=== PATIENT | male | born 1950 | race Caucasian/White ===

== ENCOUNTER 2025-02-13 09:57 | Observation (INO) ==
--- NOTE | 2024-12-12 07:40 | Anesthesiology Consultation ---
Date of Service December 12, 2024 Assessment & Plan (1) Encounter for pre-operative examination: Chart Review Chart Review: Acceptable Risk for Surgery and Patient NOT seen in Pre Admission Testing Should f/u with PCP visit from 12/12/24 regarding his chronic sinus congestion. Consults Requested none History Surgery Operation Date: 12/15/24 10:40 Proposed Procedures p Transurethral Resection of Prostate (TURP) - Joseph Traylor MD Operation Date: 12/26/24 07:30 Proposed Procedures p TURP (Transurethral Resection Prostate) - Joseph Traylor MD Height/Weight Height: 6 ft 3 in Weight: 94.347 kg Allergies Allergy/AdvReac Type Severity Reaction Status Date / Time No Known Allergies Allergy Verified 12/11/24 08:19 Medications Home Medications Medication Instructions Recorded Confirmed Last Taken tamsulosin 0.4 mg capsule (Flomax) 0.4 mg PO QPM #90 caps 02/21/24 12/11/24 Unknown Lactobacillus acidophilus and 1 cap PO QAM 12/11/24 12/11/24 Unknown rhamnosus 15 billion cell capsule (Probiotic) amlodipine 5 mg tablet 5 mg PO QPM 12/11/24 12/11/24 Unknown aspirin 81 mg tablet 81 mg PO QAM 12/11/24 12/11/24 Unknown cholecalciferol (vitamin D3) 125 125 mcg PO QAM 12/11/24 12/11/24 Unknown mcg (5,000 unit) tablet (Vitamin D3) fluticasone propionate 50 1 spray intranasal BID sinus 12/11/24 12/11/24 Unknown mcg/actuation nasal congestion spray,suspension glucosamine sulf dipot 1 cap PO QAM 12/11/24 12/11/24 Unknown chlr,msm,chond 550 mg-C 30 mg-shahla 1 mg capsule (Glucosamine Chondroitin) lisinopril 2.5 mg tablet 2.5 mg PO QPM 12/11/24 12/11/24 Unknown magnesium oxide 500 mg PO QAM 12/11/24 12/11/24 Unknown metoprolol succinate 25 mg 25 mg PO QPM 12/11/24 12/11/24 Unknown tablet,extended release 24 hr multivitamin 1 tab PO QAM 12/11/24 12/11/24 Unknown omega-3 acid ethyl esters 1 gram 4 cap PO QAM 12/11/24 12/11/24 Unknown capsule (Lovaza) rosuvastatin 5 mg tablet (Crestor) 5 mg PO Q2D 12/11/24 12/11/24 Unknown Past Medical History Medical History (Updated 12/12/24 @ 07:40 by Zay Moore MD) Encounter for pre-operative examination Chronic back pain mild - follows with a chiropractor Osteoarthritis Chronic prostatitis Sinus congestion + occasional cough - ongoing since mid-October, treated with abx on November 08, 2024 -- has not improved, but comes and goes, has a f/u with PCP 12/12/24. Hx of Lyme disease last had Summer 2023 and treated with abx. ~ - hospitalized at [facility] for ~3 days IV abx (initially believed to have been spinal menningitis). BPH (benign prostatic hyperplasia) History of COVID-19 ~Summer 2023 -> severe flu symptoms (high fever/chills, fatigue and muscle aches) - no hospitalization - resolved. Sleep apnea mild - cpap at night Hypertension Hyperlipidemia History of atrial fibrillation remote history, follows with Dr. Shields ([facility]) annually Past Family History Family History Mother Arthritis Hypertension History of anesthesia reaction hard to wake up, hallucinations Father Depression Brother Prostate cancer Sister Breast cancer Past Surgical History Surgical History History of ankle surgery Tenex procedure (with anesthesia) [facility] (Dr. Doe) H/O thumb surgery Left Hand - Dr. Gibson ([facility] Hx of prostate biopsy History of tonsillectomy History of cholecystectomy History of colonoscopy H/O rotator cuff surgery right Social History Smoking Status: Never smoker Do You Dip or Chew Tobacco: No Hx Alcohol Use: No Hx Substance Use: No substance use type: does not use Testing Laboratory Results Laboratory Tests 12/04/24 00:00 WBC 6.88 Hgb 14.1 Hct 40.6 L Plt Count 180 Sodium 140 Potassium 4.1 Chloride 108 H Carbon Dioxide 27.2 BUN 20.3 H Creatinine 0.94 Glucose 92 Electrocardiogram Date: 12/04/24 sinus anne with occasional PVC's. HR 58
--- NOTE | 2025-02-08 10:47 | Anesthesiology Consultation ---
Date of Service February 08, 2025 Assessment & Plan (1) Encounter for pre-operative examination: - acceptable to proceed from anesthesia standpoint, COVID test is not needed. - ENT 01/19/25 [place]: "...Sinusitis, maxillary, chronic. Nasal congestion: amoxicillin-pot clavulanate 875-125 mg. 1 tab PO BID 42 tabs 0RF 21 days. prednisone 3 tabs by mouth qd x 4 days, then 2 tabs by mouth qd x 4 days, then 1 tab by mouth qd x 4 days 10 mg PO DAILY 24 tabs 0RF...likely persistent chronic sinusitis that we will treat with maximal therapy..." - ER 01/06/25: "...pain and redness to the posterior right knee...thrombosed superficial veins...can treat symptomatically..." - Per contracting specialist on 02/02/25: No COVID positive test result in the past 30 days. Chart Review Chart Review: Acceptable Risk for Surgery and Patient NOT seen in Pre Admission Testing History Surgery Operation Date: 12/15/24 14:00 Proposed Procedures p Transurethral Resection of Prostate (TURP) - Joseph Traylor MD Operation Date: 12/26/24 07:30 Proposed Procedures p TURP (Transurethral Resection Prostate) - Joseph Traylor MD Operation Date: 01/02/25 13:05 Proposed Procedures p TURP (Transurethral Resection of Prostate) - Joseph Traylor MD Operation Date: 02/13/25 11:20 Proposed Procedures p TURP (Transurethral Resection Prostate) - Joseph Traylor MD Height/Weight Height: 6 ft 3 in Weight: 94.347 kg Allergies Allergy/AdvReac Type Severity Reaction Status Date / Time No Known Allergies Allergy Verified 02/02/25 09:41 Medications Home Medications Medication Instructions Recorded Confirmed Last Taken tamsulosin 0.4 mg capsule (Flomax) 0.4 mg PO QPM #90 caps 02/21/24 02/02/25 Unknown Lactobacillus acidophilus and 1 cap PO QAM 12/11/24 02/02/25 Unknown rhamnosus 15 billion cell capsule (Probiotic) amlodipine 5 mg tablet 5 mg PO QPM 12/11/24 02/02/25 Unknown aspirin 81 mg tablet 81 mg PO QAM 12/11/24 02/02/25 Unknown cholecalciferol (vitamin D3) 125 125 mcg PO QAM 12/11/24 02/02/25 Unknown mcg (5,000 unit) tablet (Vitamin D3) glucosamine sulf dipot 1 cap PO QAM 12/11/24 02/02/25 Unknown chlr,msm,chond 550 mg-C 30 mg-shahla 1 mg capsule (Glucosamine Chondroitin) lisinopril 2.5 mg tablet 2.5 mg PO QPM 12/11/24 02/02/25 Unknown magnesium oxide 500 mg PO QAM 12/11/24 02/02/25 Unknown metoprolol succinate 25 mg 25 mg PO QPM 12/11/24 02/02/25 Unknown tablet,extended release 24 hr multivitamin 1 tab PO QAM 12/11/24 02/02/25 Unknown omega-3 acid ethyl esters 1 gram 4 cap PO QAM 12/11/24 02/02/25 Unknown capsule (Lovaza) rosuvastatin 5 mg tablet (Crestor) 5 mg PO Q2D 12/11/24 02/02/25 Unknown amoxicillin 875 mg-potassium 1 tab PO BID chronic sinusitis 02/02/25 02/02/25 Unknown clavulanate 125 mg tablet Past Medical History Medical History (Updated 02/08/25 @ 10:37 by Maryanne Altamirano PA-C) BPH (benign prostatic hyperplasia) Chronic back pain mild - follows with a chiropractor Chronic prostatitis History of atrial fibrillation remote history, follows with Dr. Shields ([facility]) annually History of COVID-19 ~Summer 2023 -> severe flu symptoms (high fever/chills, fatigue and muscle aches) - no hospitalization - resolved. Hx of Lyme disease last had Summer 2023 and treated with abx. ~ - hospitalized at [facility] for ~3 days IV abx (initially believed to have been spinal meningitis). Hyperlipidemia Hypertension Osteoarthritis Sinus congestion + occasional cough - ongoing since mid-October, treated with abx on November 08, 2024 -- has not improved, but comes and goes, has a f/u with PCP 12/12/24. Sleep apnea mild - cpap at night Past Family History Family History Mother Arthritis Hypertension History of anesthesia reaction hard to wake up, hallucinations Father Depression Brother Prostate cancer Sister Breast cancer Past Surgical History Surgical History H/O rotator cuff surgery right H/O thumb surgery Left Hand - Dr. Gibson ([facility] [place]) History of ankle surgery Tenex procedure (with anesthesia) [facility] (Dr. Doe) History of cholecystectomy History of colonoscopy History of tonsillectomy Hx of prostate biopsy benign Social History Smoking Status: Never smoker Do You Dip or Chew Tobacco: No Hx Alcohol Use: No Hx Substance Use: No substance use type: does not use Testing Laboratory Results 02/05/25 WBC: 6.1 H/H: 14/41 PLATELETS: 170,000 SODIUM: 139 POTASSIUM: 4.3 CHLORIDE: 109 CO2: 26 BUN: 16 CREATININE: 0.8 GLUCOSE: 104 Urine culture: no growth Electrocardiogram Date: 12/04/24 Sinus bradycardia with occasional PVC's, rate 58 bpm Possible RV conduction delay Chest X-Ray Date: 12/04/24 No evidence of acute cardiopulmonary disease Stress Test Date: 09/16/20 MPHR 90% Normal exercise stress echo No evidence for stress-induced ischemia Normal LV EF at rest and with stress No wall motion abnormalities Other Testing RLE venous duplex 01/06/25 Thrombosed superficial varicosities over the right lateral calf. No evidence of DVT in the right lower extremity
[~2025-02-13 09:57] MED LIST: LACTATED RINGER'S 1,000 ML IV SCH
[2025-02-13] MEDS: LR 15ML/HR IV SCH (10:51)
--- NOTE | 2025-02-13 11:26 | History & Physical Bridge Note ---
Date of Service February 13, 2025 History & Physical Bridge Note I have examined the patient, reviewed the History & Physical and in the interval since the performance of the History & Physical I have noted the following changes of clinical significance: no changes noted
[2025-02-13] MEDS ORDERED: ONDANSETRON INJ 2 MG/ML 2 ML VIAL ONE (11:50)
[2025-02-13] MEDS ORDERED: ATROPINE SULFATE 0.1 MG/ML 10ML SYR IV PRN (11:50)
[2025-02-13] MEDS ORDERED: PROPOFOL IV EMULSION 10 MG/ML 20 ML VIAL IV ONE (11:50)
[2025-02-13] MEDS ORDERED: MIDAZOLAM HCL 1 MG/ML 2ML VIAL ONE (11:50)
[2025-02-13] MEDS ORDERED: DEXAMETHASONE SOD INJ 4 MG/ML VIAL ONE (11:50)
[2025-02-13] MEDS ORDERED: LIDOCAINE 2% 2 ML VIAL/AMP(20MG/ML) INFIL ONE (11:50)
[2025-02-13] MEDS: cefTRIAXone SODIUM 2,000 MG MINI-B 50 ML IV SCH (12:06)
--- NOTE | 2025-02-13 13:52 | Operative Report ---
PG Post Operative Report Pre & Post Diagnosis Operation Date: 02/13/25 11:20 Pre-Op Diagnosis: Elevated Prostate Specific Antigen, Benign Prostatic Hyperplasia with Obstruction/ Lower Urinary Tract Symptoms Post-Op Diagnosis: Elevated Prostate Specific Antigen, Benign Prostatic Hyperplasia with Obstruction/ Lower Urinary Tract Symptoms I identified the patient and participated in the time-out.: Yes Procedure Operation Date: 02/13/25 11:20 Actual Procedures p Transurethral Resection Prostate(Not Applicable) - Joseph Traylor MD Surgeon Joseph Traylor MD Skip Pitman none Estimated Blood Loss 5 Findings Consistent with Post-Op Diagnosis Specimens Prostate chips Description of Procedure The patient was identified in the preoperative holding area, appropriate informed consents were reviewed and completed and the patient was transferred to the operative suite. Upon arrival, appropriate antibiotics and anesthesia were administered and the patient was placed in dorsal lithotomy position and prepped and draped in sterile fashion. Beginning is a passive 26 [place] resectoscope with 30 lens and visual obturator. Inspection revealed a healthy-appearing urethra and had a very large prostate with lateral lobe obstruction and a high bladder neck. It appears to have circumferential intravesical intrusion but no pedunculated intravesical median lobe. Of note, he had an MRI prior to this which also confirms the shape and size of the prostate. I was able to identify ureteral orifices on my initial evaluation and the remainder of the bladder was healthy. I then utilized a loop electrode and I made an incision in the bladder neck at 5 and 7:00 with care to avoid encroachment upon the UOs. I resected the tissue between the 2 incisions before moving onto the left lateral lobe followed by the right lateral lobe. I attempted a substantial amount of anterior tissue as well as some apical tissue. We evacuated all of the chips and obtained meticulous hemostasis. A 22 [place] Graves catheter was placed with 30 cc placed in the balloon. His prostate was widely patent at the conclusion of the case and his bladder was healthy. He was reversed of anesthesia and taken to the recovery room in stable condition. There were no complications. Specimen was passed off the table for routine pathology. I attest to the content of the Intraoperative Record and any orders documented therein. Any exceptions are noted below.
[2025-02-13] MEDS: ONDANSETRON INJ 2 MG/ML 2 ML VIAL IV PRN (13:53)
--- NOTE | 2025-02-13 14:28 | Anesthesiology Progress Note ---
Date of Service February 13, 2025 Anesthesia Post Procedure Vital Signs Vital Signs: Temp Pulse Pulse Resp BP Pulse Ox O2 Del Method 02/13/25 14:10 63 12 136/81 98 Room Air 02/13/25 14:00 36.2 C L 60 12 147/88 H 96 Room Air 02/13/25 13:50 60 12 135/85 97 Room Air 02/13/25 13:40 60 12 143/84 H 96 Oxymask 02/13/25 13:30 36 C L 60 16 137/85 99 Oxymask 02/13/25 09:58 36.6 C 61 20 133/94 98 Room Air O2 Flow Rate 02/13/25 14:10 02/13/25 14:00 02/13/25 13:50 02/13/25 13:40 3 02/13/25 13:30 6 02/13/25 09:58 Transfer of Care Handoff Completed per policy Notes Mental Status: alert / awake / arousable Patient Amnestic to Procedure: Yes Nausea / Vomiting: adequately controlled Pain: adequately controlled Airway Patency, RR, SpO2: stable & adequate BP & HR: stable & adequate Hydration State: stable & adequate Anesthetic Complications: no major complications apparent
[2025-02-13] MEDS: SODIUM CHLORIDE 0.9% 500 ML IV SCH (15:11)
[2025-02-13] MEDS: ROSUVASTATIN CALCIUM 5 MG TAB PO SCH (15:15)
[2025-02-13] MEDS: CIPROFLOXACIN / D5W 400 MG/200 ML BAG IV SCH (15:17)
[2025-02-13] MEDS: ACETAMINOPHEN 500 MG TAB PO PRN (15:17)
[2025-02-13] MEDS: METOPROLOL SUCC 25MG EXT REL TAB PO SCH (21:01)
[2025-02-14 07:22] LABS: Hematocrit (blood only) 41.4 % (42.0-52.0); Hemoglobin 14.5 g/dl (14.0-18.0); Immature Granulocytes # (auto) 0.04 K/uL (0.01-0.20); Immature Granulocytes % (auto) 0.4 %; Mean Corpuscular Hemoglobin 29.7 pg (25.0-34.0); Mean Corpuscular Volume 84.8 fL (80.0-100.0); Platelet Count 192 K/uL (130-400); RDW Standard Deviation 40.2 fL (36.4-46.3); Red Blood Count 4.88 M/uL (4.70-6.10); White Blood Count 10.16 K/ul (4.8-10.8)
[2025-02-14 07:37] LABS: Anion Gap 6.0 (3-11); Blood Urea Nitrogen 14.0 mg/dl (6-23); Calcium 8.7 mg/dl (8.6-10.3); Carbon Dioxide 26.0 mmol/L (21-32); Chloride 107.0 mmol/L (98-107); Creatinine Clr Calc Pharmacy 103.6 ml/min; Glucose 121.0 mg/dl (70-99(Fasting)); Potassium 4.2 mmol/L (3.5-5.1); Sodium 139.0 mmol/L (136-145)
--- NOTE | 2025-02-14 08:22 | Urology Progress Note ---
Date of Service February 14, 2025 Assessment & Plan (1) BPH with obstruction/lower urinary tract symptoms: (2) Elevated PSA: Plan Postop day #1 status post TURP Light large volume prostate Urine clear today Creatinine appropriate at 0.7, hemoglobin stable Plan for voiding trial and discharge home Admission and Anticipated Discharge Date Admission Date: February 13, 2025 Subjective Postop day #1 status post TURP Doing really well Urine is clear No major issues overnight Ambulatory Physical Exam Physical Exam: Urine clear Results & Data Vital Signs (Past 12 Hours) Vital Signs Temp Pulse Resp BP Pulse Ox O2 Del Method 02/14/25 08:05 36.7 C 59 L 16 145/84 H 96 Room Air 02/14/25 02:52 36.6 C 62 16 124/69 96 Room Air 02/13/25 21:02 36.6 C 69 16 145/70 H 98 Room Air PG Care Time/CCT Total # of Minutes Spent Total Time Spent with Patient: Total time spent is greater than 50% in coordination of care (as documented) at patient's floor/unit and/or counseling patient: Coding Level of Care Code None Diagnoses BPH with obstruction/lower urinary tract symptoms N40.1; N13.8 Elevated PSA R97.20
[2025-02-14] MEDS: MAGNESIUM OXIDE 400 MG TAB PO SCH (09:02)
--- NOTE | 2025-02-14 16:20 | Discharge Summary ---
Date of Service February 14, 2025 Admission HPI Per Admitting Provider 74-year-old male with BPH with urinary obstruction/LUTS who presented for transurethral resection of the prostate Admission Exam Per Admitting Provider Constitutional well developed and well nourished Neck neck nontender Respiratory normal respiratory effort; no respiratory distress and does not use accessory muscles Cardiovascular Rate/Rhythm: regular rate Vessels: radial pulses present Extremities: no edema Gastrointestinal (Abdomen) Inspection/Auscultation: abdomen normal to inspection Percussion/Palpation: abdomen soft; abdomen nontender and no guarding Musculoskeletal Head/Neck/Chest: normocephalic and head atraumatic Extremities: extremities normal to inspection Skin no rashes and no lesions Trauma: no evidence of skin trauma Neurologic awake; not obtunded Speech / Cognition: normal speech Motor/Sensory: no tremor Psychiatric Orientation: alert and oriented x 3 Genitourinary no CVA tenderness Lymphatic no lymphadenopathy Principal Diagnosis BPH with urinary obstruction/LUTS Discharge Exam Constitutional no acute distress Respiratory no respiratory distress and no labored breathing Neurologic moves all extremities and awake Psychiatric A+Ox3, euthymic affect Discharge Data Allergies Allergy/AdvReac Type Severity Reaction Status Date / Time No Known Allergies Allergy Verified 02/13/25 10:15 Procedures Performed Operation Date: 02/13/25 11:20 Actual Procedures p Transurethral Resection Prostate(Not Applicable) - Joseph Traylor MD Hospital Course (1) BPH with obstruction/lower urinary tract symptoms: Plan 74-year-old male admitted status post transurethral resection of the prostate. Patient tolerated procedure well. No acute issues postoperatively. He remained afebrile and hemodynamically stable. Graves catheter removed on postop day #1 for a voiding trial. He was able to void following catheter removal. He reported minimal pain. Ambulated without issue. Tolerated diet. He was subsequently discharged home on postop day #1. He was in stable condition at time of discharge. Discharge instructions were reviewed and all questions were answered. Total Time Total Time Spent Total Time Spent (In Minutes): 15 Discharge Plan Discharge Items Patient Disposition: Home - Self-Care Reason For Visit: Elevated Prostate Specific Antigen (PSA), Benign P Discharge Diagnosis: BPH w/LUTS, Elevated PSA Condition on Discharge: Good Activity: Per Instructions section Non-emergency contact: Surgeon and Urologist Call non-emergency contact if: you have any medication questions, your symptoms worsen, your pain is not controlled and you have a fever Follow-up/Referrals: Joseph Traylor MD [Physician] - 03/05/25 10:30 am Eddie Guillen PA-C [Primary Care Provider] - Diet: Regular Addtl Attending Provider Instructions: Please take all medications as prescribed and keep all follow-ups as scheduled. Please call our office at [phone] with any questions, concerns or need to reschedule appointments for any reason. We are happy to assist you. Tips for your recovery at home: Dont be alarmed by brownish or reddish blood or clots in your urine. This is a result of the procedure. This may occur off and on for weeks to months after the procedure but should continue to improve. Drink plenty of fluids during the day (enough to keep your urine very light colored). This will help keep a healthy flow of urine. Do not lift >25 lbs until your followup Avoid constipation. Please use a stool softener (Colace) for the first two weeks after your procedure Be sure to finish the antibiotics as prescribed. When to call [facility] at [phone]: Your urine contains heavy blood clots or you are unable to urinate. You are constantly leaking urine Fever of 101F or higher, chills, nausea, or vomiting Your pain is not relieved with medication Pending Studies at Discharge: Yes (pathology) Stand-Alone Forms: [facility], Smoking Cessation Medications and DC Order Prescriptions: New ciprofloxacin HCl 500 mg tablet 500 mg PO BID 3 Days Qty: 6 0RF Continued tamsulosin [Flomax] 0.4 mg capsule 0.4 mg PO QPM Qty: 90 3RF Rx Instructions: Take one capsule at bedtime. multivitamin Tablet 1 tab PO QAM amlodipine 5 mg Tablet 5 mg PO QPM magnesium oxide 500 mg magnesium Tablet 500 mg PO QAM aspirin 81 mg Tablet 81 mg PO QAM metoprolol succinate 25 mg Tablet Extended Release 24 Hr 25 mg PO QPM lisinopril 2.5 mg Tablet 2.5 mg PO QPM rosuvastatin [Crestor] 5 mg Tablet 5 mg PO Q2D omega-3 acid ethyl esters [Lovaza] 1 gram Capsule 4 cap PO QAM cholecalciferol (vitamin D3) [Vitamin D3] 125 mcg (5,000 unit) Tablet 125 mcg PO QAM Probiotic 15 billion cell Capsule 1 cap PO QAM Glucosamine Chondroitin 550-30-1 mg Capsule 1 cap PO QAM amoxicillin-pot clavulanate 875-125 mg tablet 1 tab PO BID Patient Comments: for 21 days -- started on 01/19/25 acetaminophen 500 mg Tablet 1,000 mg PO QID PRN (Reason: Pain) Discharge Orders: Discharge Order (Routine); Ordered 02/14/25 Ordered By: Katja Greene Admission Data Admit Date/Time: 02/13/25 13:31 Attending Provider: Joseph Traylor Admit Provider: Joseph Traylor Primary Care Provider: Eddie Guillen Other Interventions: Discharge Summary Assessment (RN) Last Done: 02/14/25 13:32 Coding Level of Care Code 45910 IN/OBS DISCH 30 MIN/LESS Diagnoses BPH with obstruction/lower urinary tract symptoms N40.1; N13.8
== END 2025-02-14 14:53 | disposition home or self-care (01) ==
LOC: ASU 09:57 → 3E 09:57